=== PATIENT | female | born 1950 | race Caucasian/White ===

== ENCOUNTER → 2017-04-10 | Outpatient (CLI) | payer MEDICARE, OTHER ==
[~2017-04-10] MED LIST: Pepcid20 MG PO; Prednisone20 MG PO; Zofran Odt4 MG SL
== END | disposition home or self-care (01) ==
LOC: LAB 19:22
PROVIDERS: Internal Medicine
DX: Z01.419 Encounter for gynecological examination (general) (routine) without abnormal findings (principal)
CPT/HCPCS: G0145

== ENCOUNTER → 2017-10-08 | Outpatient (CLI) | payer MEDICARE, OTHER | END | disposition home or self-care (01) | LOC: LAB EV 09:52 → LAB SHORT 09:52 | DX: N39.0 Urinary tract infection, site not specified (principal) | CPT/HCPCS: 87077; 87086; 87186 ==

== ENCOUNTER → 2018-03-26 | Outpatient (CLI) | payer MEDICARE, OTHER | END | disposition home or self-care (01) | LOC: LAB EV 09:35 → LAB SHORT 09:35 | DX: N39.0 Urinary tract infection, site not specified (principal) | CPT/HCPCS: 87086 ==

== ENCOUNTER 2018-06-19 06:04 | Inpatient (IN) | payer MEDICARE, OTHER ==
[~2018-06-19] VITALS: Ht 175.3 cm; Wt 67.6 kg
[~2018-06-19 06:04] MED LIST changes: +ASCO500 PO; +CHOL10002 PO; +Glucosamine Ch1 EAC4 PO; +THERA1 EACH PO
--- NOTE | 2018-06-19 10:15 | NUR ---
BLADDER SCANED 165 ML NO URGE TO VOID
--- NOTE | 2018-06-19 17:41 | NUR ---
SHIFT SUMMARY PT A&OX4, VSS. S/P R WENDY, SURGICAL DRESSING CDI. PAIN MANAGED WITH 5 MG OXY, TYLENOL AND TORADOL. BO PO, DENIES N&V. AMB W/FWW & GB TO [facility], SITTING IN CHAIR. VOIDING WELL. PT EVAL'D, PLAN FOR SECOND PT IN AM FOR STAIRS AND CAR, THEN DC. WILL CTM & TX PER EMAR UNTIL REPORT GIVEN TO ONCOMING NOC RN.
--- NOTE | 2018-06-20 03:55 | NUR ---
SUMMARY: PT IS POD1 R WENDY. DOING WELL POST OP. MOVES EASILY WITH SBA, FWW. SURGICAL SITE CDI. APPLIED ICE TONIGHT AND GAVE TYLENOL AND TORADOL. PT DENIED NEED FOR ANY NARCOTICS. RATED PAIN 1/10 EVEN AFTER GETTING UP TO VOID. VSS, NO ACUTE CONCERNS AT THIS TIME.
[2018-06-20 04:47] LABS: BASOPHILS ABSOLUTE AUTO 0.03 K/mm3 (0.00-0.23); BASOPHILS PERCENT AUTO 0 % (0-2); EOSINOPHILS ABSOLUTE AUTO 0.01 K/mm3 (0.00-0.68); EOSINOPHILS PERCENT AUTO 0 % (0-6); Hematocrit 35.1 % (33.0-51.0); Hemoglobin 11.9 g/dL (11.5-16.0); IMMATURE GRAN ABSOLUTE AUTO 0.06 K/mm3 (0.00-0.10); IMMATURE GRAN PERCENT AUTO 0 % (0-1); LYMPHOCYTES PERCENT AUTO 9 % (21-46); MONOCYTES ABSOLUTE AUTO 1.07 K/mm3 (0.16-1.47); MONOCYTES PERCENT AUTO 8 % (4-13); Mean Corpuscular HGB 32.3 pg (26.0-34.0); Mean Corpuscular HGB Conc 33.9 g/dL (31.5-36.5); Mean Corpuscular Volume 95 fL (80-100); Mean Platelet Volume 9.9 fL (9.1-12.4); NEUTROPHILS ABSOLUTE AUTO 11.68 K/mm3 (1.96-9.15); NEUTROPHILS PERCENT AUTO 83 % (41-73); Platelet Count 241 K/mm3 (150-400); RDW Coefficient Variation 12.5 % (11.7-14.2); RDW Standard Deviation 43.7 fL (35.1-46.3); Red Blood Cell Count 3.68 M/mm3 (3.80-5.20); White Blood Cell Count 14.05 K/mm3 (4.00-11.30)
[2018-06-20 05:06] LABS: Anion Gap 7 mmol/L (6-16); Blood Urea Nitrogen 12 mg/dL (8-24); Bun/Creatinine Ratio 17.9 (12.0-20.0); CO2, Blood 27 mmol/L (21-32); Calcium, Blood 8.6 mg/dL (8.5-10.1); Chloride, Blood 102 mmol/L (98-108); Creatinine, Blood 0.67 mg/dL (0.40-1.00); Glomerular Filtration Rate >60 (60-); Glucose, Blood 145 mg/dL (70-99); Potassium, Blood 4.1 mmol/L (3.5-5.5); Sodium, Blood 136 mmol/L (136-145)
[2018-06-20] MEDS ORDERED: ASPI325EC PO (08:35)
[2018-06-20] MEDS ORDERED: OXYC5 PO (08:37)
--- NOTE | 2018-06-20 10:10 | NUR ---
DISCHARGE SUMMARY PT A&OX4, VSS, LEFT FLOOR VIA WC WITH ENGINE MONITOR TO GO HOME WITH , WITH ALL PERSONAL POSSESSIONS INCLUDING DISCHARGE PACKET; PT REP ALREADY HAVING NARC SCRIPT FILLED PRIOR TO SURG. DISCHARGE INSTRUCTIONS PROVIDED. PT REP UNDERSTANDING THOSE INSTRUCTIONS INCLUDING FU APPT WITH SG, PAIN MANAGEMENT, PT APPTS, SHORT FREQ AMB W/FWW, ELEVATE & ICE AT REST. IV DC'D.
== END 2018-06-20 10:20 | disposition home or self-care (01) | DRG 470 ==
LOC: ORSCMMR 06:04 → SURS 07:22 → ORD 07:30 → ORSCMMR 07:30 → SURS 10:18
PROVIDERS: ADMIT Orthopaedic Surgery
PROC: 0SR9039 Replacement of Right Hip Joint with Ceramic Synthetic Substitute, Cemented, Open Approach (ICD-10-PCS; principal; 2018-06-19 07:30)
DX: M16.11 Unilateral primary osteoarthritis, right hip (principal)
CPT/HCPCS: 36415; 72170; 80048; 83735; 85025; 88300; 97110; 97116; 97161; 97530; C1713; C1776; J0171; J0690; J0735; J1100; J1885; J2250; J2370; J2405; J2704; J2710; J2795; J3010; J7120

== ENCOUNTER 2020-04-28 06:18 | Day surgery (SDC) | payer MEDICARE, OTHER ==
[~2020-04-28] VITALS: Ht 172.7 cm; Wt 69.2 kg
[~2020-04-28 06:18] MED LIST changes: +ASPI325EC PO; -Glucosamine Ch1 EAC4 PO; +Glucosamine Chondroi PO; +OXYC5 PO
--- NOTE | 2020-04-28 07:13 | NUR ---
Ambulatory in Day Surgery Surgical site prepped with 2% Chlorhexidine cloth wipe. Dari Paws warming gown applied. History, Chart, Medications and Allergies reviewed before start of procedure.Lungs clear T/O to Auscultation. Patient confirms NPO status and agrees with scheduled surgery. Pre-Op teaching done. Pt verbalizes understanding. Patient States Post-Procedure ride home has been arranged. Patient reports completing Chlorhexadine shower X2 prior to admission to hospital.
--- NOTE | 2020-04-28 10:14 | NUR ---
RECIEVED REPORT FROM PACU NURSE SOLO AT 1010. PT TO RM 219.
--- NOTE | 2020-04-28 11:19 | NUR ---
PT ARRIVED IN ROOM 219 AT 1015. PODO S/P L WENDY. PT AOX4. VSS. PT ON ROOM AIR SATURATING MORE THAN 95%. PT DENIES PAIN. PT L HIP WITH 3 FOAM GAUZE, WITH CDI. SHE HAD SPINAL ANESTHESIA, REPORTS SENSATION. ABLE TO WIGGLE TOES. CAP REFILL WNL. PEDAL PULSES ARE STRONG. R FOREARM INFUSING. TXA ADMINSTERED AT 1100. PT TOLERATING CLEAR DIET, DENIES N/V. SCD IN PLACED AND ANTIEMBOLIC SOCKS. CRYOTHERAPY IS ALSO IN PLACED ON L HIP. PT REQUESTED TO CALL FOR AN UPDATE. I CALLED AND SPOKE WITH FOR AN UPDATE. HE WILL COME IN LATER TODAY, HE PLANS TO WORK WITH AND THERAPIST LATER TODAY. CALL LIGHT WITHIN REACH.
--- NOTE | 2020-04-28 19:16 | NUR ---
SHIFT SUMMARY PT AOX4. POD0 L WENDY. NO ACUTE CHANGES. PT REPORTS MINIMAL PAIN. PAIN MANAGED WITH TORADOL, TYLENOL AND COLLEEN 5MG. PT TOLERATING RED DIET. DENIES N/V. PT HAS CHRONIC NEUROPATHY DENIES SIGNIFICANT N/T. ADMINISTERD ABX. SALINE LOCKED. PT WORKED WITH PT AND OT TODAY, TOLERATED IT WELL. WAS PRESENT AT THE BEDSIDE THIS AFTERNOON DURING THE THERAPY SESSION. SHE WILL HAVE A SCHEDULED SESSION AGAIN ASHLI MORNING WITH AT 9AM. CALL LIGHT WITHIN REACH. PAS ON BILATERAL CALF IN PLACED. VSS.
[2020-04-29 05:56] LABS: BASOPHILS ABSOLUTE AUTO 0.06 K/mm3 (0.00-0.23); BASOPHILS PERCENT AUTO 0 % (0-2); EOSINOPHILS ABSOLUTE AUTO 0.06 K/mm3 (0.00-0.68); EOSINOPHILS PERCENT AUTO 0 % (0-6); Hematocrit 38.4 % (33.0-51.0); IMMATURE GRAN ABSOLUTE AUTO 0.06 K/mm3 (0.00-0.10); IMMATURE GRAN PERCENT AUTO 0 % (0-1); LYMPHOCYTES PERCENT AUTO 11 % (21-46); MONOCYTES PERCENT AUTO 8 % (4-13); Mean Corpuscular HGB 31.9 pg (26.0-34.0); Mean Corpuscular HGB Conc 33.9 g/dL (31.5-36.5); Mean Corpuscular Volume 94 fL (80-100); Mean Platelet Volume 10.4 fL (9.1-12.4); NEUTROPHILS PERCENT AUTO 80 % (41-73); Platelet Count 277 K/mm3 (150-400); RDW Coefficient Variation 12.6 % (11.7-14.2); RDW Standard Deviation 43.8 fL (35.1-46.3); Red Blood Cell Count 4.07 M/mm3 (3.80-5.20); White Blood Cell Count 14.78 K/mm3 (4.00-11.30)
[2020-04-29 06:28] LABS: Anion Gap 5 mmol/L (6-16); Blood Urea Nitrogen 20 mg/dL (8-24); Bun/Creatinine Ratio 27.1 (12.0-20.0); CO2, Blood 28 mmol/L (21-32); Calcium, Blood 9.3 mg/dL (8.5-10.1); Chloride, Blood 106 mmol/L (98-108); Creatinine, Blood 0.74 mg/dL (0.40-1.00); Glomerular Filtration Rate >60 (60-); Glucose, Blood 93 mg/dL (70-99); Magnesium, Blood 2.1 mg/dL (1.6-2.4); Potassium, Blood 4.1 mmol/L (3.5-5.5); Sodium, Blood 139 mmol/L (136-145)
--- NOTE | 2020-04-29 06:31 | NUR ---
SHIFT SUMMARY LYING IN SEMI FOWLERS WITH EYES CLOSED, HAS RESTED WELL THROUGHOUT SHIFT. POD #1, AAO X4, FAITH, FOLLOWS DIRECTIONS. RESPIRATIONS EVEN AND UNLABORED ON ROOM AIR. LUNG SOUNDS CLEAR BILATERALLY. ABDOMEN SOFT AND NONDISTENDED. BOWEL SOUNDS NOTED IN ALL QUADS. LEFT HIP WITH FOAM COVERED GUAZE DRESSINGS THAT ARE C/D/I. SCD'S NOTED TO BLE. DENIES PAIN, DISCOMFORT, OR FURTHER NEEDS AT THIS TIME. SAFETY MEASURES IN PLACE. WILL CONTINUE TO MONITOR AND GIVE HAND OFF TO ONCOMING SHIFT USING SBAR DURING BEDSIDE REPORT.
[2020-04-29] MEDS ORDERED: ASPI81CH PO (10:24)
[2020-04-29] MEDS ORDERED: OXAYDO5 M1 PO (10:25)
[2020-04-29] MEDS ORDERED: PROM25 PO (10:26)
--- NOTE | 2020-04-29 11:11 | NUR ---
discharged DC'D IV, CATHETER INTACT. REVIEWED DC INSTRUCTIONS W/PT; VERBALIZED UNDERSTANDING. PROVIDED AQUACEL DRESSING CHANGES. PT LEFT UNIT IN WC W/POSSESSIONS, POLAR PACK, AQUACEL, AND DC INSTRUCTIONS IN HAND, ACCOMPANIED BY SPOUSE.
[2020-07-06] MEDS ORDERED: Percocet 5-3251 EACH PO (15:24)
[2020-07-06] MEDS ORDERED: MULVITA PO (15:33)
[2020-07-06] MEDS ORDERED: ASCO500 PO (15:33)
[2020-07-06] MEDS ORDERED: GLUCHON PO (15:34)
[2020-07-06] MEDS ORDERED: VITAMIN D310 MC4 PO (15:34)
== END 2020-04-29 10:54 | disposition home or self-care (01) ==
LOC: ORD 06:18 → ORSCMMR 06:18 → ORD 07:30 → SURS 10:14 → ORSCMMR 04-29 10:54 → SURS 04-29 10:54 → ORD 04-29 10:54
PROVIDERS: Orthopaedic Surgery
PROC: 0SRB0JA Replacement of Left Hip Joint with Synthetic Substitute, Uncemented, Open Approach (ICD-10-PCS; principal; 2020-04-28 07:30)
PROC: 8E0YXBZ Computer Assisted Procedure of Lower Extremity (ICD-10-PCS; principal; 2020-04-28 07:30)
DX: M16.12 Unilateral primary osteoarthritis, left hip (principal)
CPT/HCPCS: 36415; 72170; 80048; 83735; 85025; 88300; 97110; 97116; 97161; 97165; 97530; 97535; A9270; C1713; C1776; J0171; J0690; J0735; J1100; J1885; J2250; J2405; J2704; J2795; J3010; J3370; J7120

== ENCOUNTER 2020-04-29 22:47 | Observation (INO) | payer MEDICARE, OTHER ==
[~2020-04-29] VITALS: Ht 172.7 cm; Wt 65.8 kg
[~2020-04-29 22:47] MED LIST changes: +ASPI81CH PO; +OXAYDO5 M1 PO; +PROM25 PO
[2020-04-29 23:22] LABS: BASOPHILS ABSOLUTE AUTO 0.09 K/mm3 (0.00-0.23); BASOPHILS PERCENT AUTO 1 % (0-2); EOSINOPHILS PERCENT AUTO 1 % (0-6); Hematocrit 39.1 % (33.0-51.0); Hemoglobin 13.1 g/dL (11.5-16.0); IMMATURE GRAN ABSOLUTE AUTO 0.07 K/mm3 (0.00-0.10); IMMATURE GRAN PERCENT AUTO 1 % (0-1); LYMPHOCYTES ABSOLUTE AUTO 1.51 K/mm3 (0.84-5.20); LYMPHOCYTES PERCENT AUTO 10 % (21-46); MONOCYTES ABSOLUTE AUTO 1.33 K/mm3 (0.16-1.47); MONOCYTES PERCENT AUTO 9 % (4-13); Mean Corpuscular HGB 31.7 pg (26.0-34.0); Mean Corpuscular HGB Conc 33.5 g/dL (31.5-36.5); Mean Corpuscular Volume 95 fL (80-100); Mean Platelet Volume 10.2 fL (9.1-12.4); NEUTROPHILS ABSOLUTE AUTO 12.12 K/mm3 (1.96-9.15); NEUTROPHILS PERCENT AUTO 80 % (41-73); Platelet Count 271 K/mm3 (150-400); RDW Coefficient Variation 12.9 % (11.7-14.2); Red Blood Cell Count 4.13 M/mm3 (3.80-5.20); White Blood Cell Count 15.22 K/mm3 (4.00-11.30)
[2020-04-29 23:42] LABS: Alanine Aminotransfer (ALT/SGP 24 U/L (12-78); Albumin, Blood 3.3 g/dL (3.4-5.0); Albumin/Globulin Ratio 1.1 (0.8-1.8); Alk Phos 83 U/L (50-136); Anion Gap 8 mmol/L (6-16); Aspartate Aminotrans (AST/SGOT 32 U/L (12-37); Bilirubin, Total 0.5 mg/dL (0.1-1.0); Blood Urea Nitrogen 21 mg/dL (8-24); Bun/Creatinine Ratio 28.5 (12.0-20.0); CO2, Blood 25 mmol/L (21-32); Calcium, Blood 8.9 mg/dL (8.5-10.1); Chloride, Blood 108 mmol/L (98-108); Creatinine, Blood 0.74 mg/dL (0.40-1.00); Globulin, Blood 3.1 g/dL (2.2-4.0); Glomerular Filtration Rate >60 (60-); Glucose, Blood 112 mg/dL (70-99); Potassium, Blood 3.7 mmol/L (3.5-5.5); Sodium, Blood 141 mmol/L (136-145); Total Protein, Blood 6.4 g/dL (6.4-8.2); Troponin I <0.015 ng/mL (0.000-0.040)
[2020-04-30 01:13] LABS: International Normalized Ratio 0.97; Prothrombin Time Results 10.4 Sec (9.7-11.5)
--- NOTE | 2020-04-30 04:00 | NUR ---
PATIENT IS A NEW ADMIT FROM THE ED. FOUR PERSON TRANSFER WITH LEFT LEG/KNEE IMMOBILIZER IN PLACE, FROM [facility] TO BED. ALERT AND ORIENTED. TELEMETRY PLACED AND TECH REPORTS NSR 83. SUCCESSFULLY USING BED ENRIQUEZ AT THIS TIME. BEDREST. REPORTS MINIMAL LEFT HIP PAIN 04/14. DENIES N/V AND SOB. ON RROM AIR. NORMAL SALINE STARTED AND INFUSING AT 75 mL/HR X ONE BAG. PATIENT ORIENTED TO ROOM AND CALL LIGHT SYSTEM. REPORTS SHE IS READY TO SLEEP AT THIS TIME. CALL LIGHT IN REACH.
[2020-04-30 07:18] LABS: BASOPHILS ABSOLUTE AUTO 0.05 K/mm3 (0.00-0.23); BASOPHILS PERCENT AUTO 0 % (0-2); EOSINOPHILS ABSOLUTE AUTO 0.01 K/mm3 (0.00-0.68); EOSINOPHILS PERCENT AUTO 0 % (0-6); Hematocrit 34.9 % (33.0-51.0); Hemoglobin 12.1 g/dL (11.5-16.0); IMMATURE GRAN ABSOLUTE AUTO 0.04 K/mm3 (0.00-0.10); IMMATURE GRAN PERCENT AUTO 0 % (0-1); LYMPHOCYTES ABSOLUTE AUTO 0.94 K/mm3 (0.84-5.20); LYMPHOCYTES PERCENT AUTO 8 % (21-46); MONOCYTES PERCENT AUTO 9 % (4-13); Mean Corpuscular HGB 32.2 pg (26.0-34.0); Mean Corpuscular HGB Conc 34.7 g/dL (31.5-36.5); Mean Corpuscular Volume 93 fL (80-100); Mean Platelet Volume 9.9 fL (9.1-12.4); NEUTROPHILS ABSOLUTE AUTO 9.33 K/mm3 (1.96-9.15); NEUTROPHILS PERCENT AUTO 82 % (41-73); Platelet Count 241 K/mm3 (150-400); RDW Coefficient Variation 12.9 % (11.7-14.2); RDW Standard Deviation 43.8 fL (35.1-46.3); Red Blood Cell Count 3.76 M/mm3 (3.80-5.20); White Blood Cell Count 11.37 K/mm3 (4.00-11.30)
[2020-04-30 07:38] LABS: Alanine Aminotransfer (ALT/SGP 23 U/L (12-78); Albumin, Blood 2.8 g/dL (3.4-5.0); Albumin/Globulin Ratio 0.9 (0.8-1.8); Alk Phos 75 U/L (50-136); Anion Gap 5 mmol/L (6-16); Aspartate Aminotrans (AST/SGOT 35 U/L (12-37); Bilirubin, Total 0.7 mg/dL (0.1-1.0); Blood Urea Nitrogen 11 mg/dL (8-24); Bun/Creatinine Ratio 19.6 (12.0-20.0); CO2, Blood 26 mmol/L (21-32); Calcium, Blood 8.6 mg/dL (8.5-10.1); Chloride, Blood 113 mmol/L (98-108); Creatinine, Blood 0.56 mg/dL (0.40-1.00); Glomerular Filtration Rate >60 (60-); Glucose, Blood 98 mg/dL (70-99); Potassium, Blood 3.9 mmol/L (3.5-5.5); Sodium, Blood 144 mmol/L (136-145); Total Protein, Blood 5.8 g/dL (6.4-8.2)
[2020-04-30 08:00] LABS: Creatine Kinase MB Index 0.8 (0.0-4.0)
--- NOTE | 2020-04-30 14:43 | NUR ---
CARE COORDINATION REFERRAL - ADMIT: 04/29/20 DISCHARGE: DX: HIP DISLOCATION CC: ZOE CALL: RESIDENCE: HOME CAREGIVER: ABBY GASTELUM, SPOUSE / PARTNER, [phone] DONNY VEGA, FAMILY MEMBER, [phone] DX: DISORDER OF BONE, OSTEOARTHRITIS, SEE LIST DME: ARM SPLINT CCM: NONE HOME HEALTH: NONE
--- NOTE | 2020-04-30 15:31 | NUR ---
SHIFT SUMMARY PT AWAKE DURING SHIFT REPORT. PLEASANT AND CO-OP. DENIED PAIN, DENIED FURTHER NEEDS AT THAT TIME. PT SITTING UP IN BED FOR BREAKFAST, THEN NEEDING TO USE BED ENRIQUEZ TO VOID. PT ADMITTED FOR L HIP DISLOCATION EARLY THIS AM AFTER FALL AT HOME WITH 1DAY OLD HIP REPLACEMENT. PT REQUESTING CONSULT WITH DR MOLINA, WHO DID HIP SX DAY BEFORE. NOTIFIED DR SEE FOR ORDERS. DR MOLINA NOTIFIED OF CONSULT AND FOR PT/OT INSTRUCTIONS. DR MOLINA LATER IN TO ASSESS PT AND HIP, CHANGING DRSG AND CLEANING SX SITE BEFORE PLACING NEW DRSG. SITE HEALING WNL'S. PT WITH KNEE IMMOBILIZER IN PLACE WELL. PT UP TO BTHRM WITH P/T USING FWW AND SITTING IN CHAIR AT BS FOR LUNCH. PT LATER BACK TO BED FOR A SHORT NAP BEFORE GETTING BACK UP TO CHAIR. DR MOLINA CLEARED PT FOR D/C PER ORTHO, DISCUSSING D/C INSTRUCTIONS PER ORTHO WHEN GOING HOME. DR SEE NOTIFIED, AND LATER IN TO SEE PT. D/C ORDERS PLACED. D/C INSTRUCTIONS DISCUSSED AGAIN WITH PT; VERBALIZED UNDERSTANDING. PT'S ASSISTED PT WITH GETTING DRESSED. PT ABLE TO TX TO W/C AND ASSISTED OUT TO HUSBANDS TRUCK. PT CONTINUED TO DENY PAIN AND DENIED NEEDING ANYTHING FOR PAIN. PT REPORTED HIGHEST PAIN LEVEL TODAY AT 1/10.
--- NOTE | 2020-05-04 19:48 | NUR ---
ADMIT: 04/29/20 DISCHARGE:04/30/20 DX: hip dislocation CC: ZOE CALL: call her at home RESIDENCE: home CAREGIVER: Scotty Ascencio, Spouse / Partner, [phone] Imani Zamora, Family Member, [phone] DX: Disorder of bone, osteoarthritis, see list DME: arm splint CCM: none HOME HEALTH: none SUMMARY:Admit 04/28/20 Discharge 04/30/[address] Pierce: DISCHARGE MEDICATIONS: 1. Aspirin 81 mg p.o. q.a.m. 2. Multivitamin one p.o. daily. 3. Oxycodone 5 mg p.o. q.8 hours p.r.n. 4. Phenergan 12.5 mg p.o. q.8 hours p.r.n. 5. Vitamin D 2000 International Units p.o. daily. FOLLOWUP: The patient is to follow up with Dr. Tuttle as previously scheduled in two weeks' time. She is to follow up with her primary care physician, Dr. Flores as previously scheduled. There are no pending studies .Patient presents to the emergency department for evaluation of a syncopal episode with left-sided hip pain, 1 day after being discharged from this facility after left hip replacement.
[2020-07-06] MEDS ORDERED: Percocet 5-3251 EACH PO (15:24)
[2020-07-06] MEDS ORDERED: ASCO500 PO (15:33)
[2020-07-06] MEDS ORDERED: MULVITA PO (15:33)
[2020-07-06] MEDS ORDERED: GLUCHON PO (15:34)
[2020-07-06] MEDS ORDERED: VITAMIN D310 MC4 PO (15:34)
== END 2020-04-30 14:56 | disposition home or self-care (01) ==
LOC: ER 22:47 → MEDS 22:48
PROVIDERS: Emergency Medicine; ADMIT Internal Medicine
DX: R55 Syncope and collapse (principal); Z79.82 Long term (current) use of aspirin; Z79.891 Long term (current) use of opiate analgesic; Z96.642 Presence of left artificial hip joint
CPT/HCPCS: 27250; 36415; 72170; 73501; 73502; 73560-LT; 80048; 80053; 82550; 82553; 83605; 83735; 84484; 85025; 85610; 88300; 93005; 93010; 96372; 97110; 97116; 97161; 97165; 97530; 97535; 99285-25; A9270; C1713; C1776; G0378; J0171; J0690; J0735; J1100; J1650; J1885; J2250; J2405; J2704; J2795; J3010; J3370; J7030; J7120

== ENCOUNTER 2020-06-23 19:17 | Emergency (ER) | payer MEDICARE ==
[~2020-06-23] VITALS: Ht 172.7 cm; Wt 65.8 kg
== END 2020-06-24 03:23 | disposition home or self-care (01) ==
LOC: ER 19:17
DX: T84.021A Dislocation of internal left hip prosthesis, initial encounter (principal); Z79.899 Other long term (current) drug therapy; Z91.030 Bee allergy status
CPT/HCPCS: 27250; 73501; 73502; 99152; 99284-25; J2704; J7030

== ENCOUNTER 2020-07-21 06:07 | Day surgery (SDC) | payer MEDICARE, OTHER ==
[~2020-07-21] VITALS: Ht 172.7 cm; Wt 66.2 kg
[~2020-07-21 06:07] MED LIST changes: +GLUCHON PO; +MULVITA PO; +Percocet 5-3251 EACH PO; +VITAMIN D310 MC4 PO
--- NOTE | 2020-07-21 06:40 | NUR ---
Ambulatory in Day Surgery. History, Chart, Medications and Allergies reviewed before start of procedure. Patient confirms NPO status and agrees with scheduled surgery. Lungs clear T/O to Auscultation.
--- NOTE | 2020-07-21 17:24 | NUR ---
SHIFT SUMMARY PT HAS BEEN IN PLEASENT MOOD THROUGHOUT SHIFT. PT IS RELAXING IN CHAIR WITH SCD IN PLACE. PT HAS BEEN UTILIZING CALL LIGHT FOR BATHROOM NEEDS. PT IS TOLLERATING ORAL INTAKE. CALL LIGHT IS WITHIN REACH. PT VSS.
--- NOTE | 2020-07-21 20:54 | NUR ---
VANCO REACTION PT APPEARS TO BE HAVING A LOCALIZED IV SITE REACTION AFTER RECEIVING HER ONE TIME DOSE OF VANCOMYACIN, SMALL RED AREA AROUND IV SITE AND PT IS REPORTING HER DISTAL ARM FEELS ITCHY. DISCUSSED MEDICATION REACTIONS WITH THE PATIENT AND PROVIDED A DOSE OF BENADRYL (SEE EMAR). WILL CONTINUE TO MONITOR AND UPDATE ANY CHANGES.
--- NOTE | 2020-07-22 03:24 | NUR ---
SHIFT SUMMARY POD1 L WENDY, A/O X4, VSS, BP ON THE LOW SIDE BUT MAP HAS BEEN WNL AND PATIENT HAS REMAINED ASYMPTOMATIC, MILD REACTION TO SINGLE VANCOMYACIN IV ABX (SEE NURSE NOTES),REDNESS STILL PRESENT AT IV SIGTE BUT IT IS IMPROVING, PAIN WELL MANAGED PER EMAR, NO ACUTE EVENTS THIS SHIFT. CALL LIGHT IN REACH, WILL CONTINUE TO MONITOR AND REPORT TO ONCOMING DAY RN.
[2020-07-22 04:49] LABS: BASOPHILS ABSOLUTE AUTO 0.06 K/mm3 (0.00-0.23); BASOPHILS PERCENT AUTO 1 % (0-2); EOSINOPHILS ABSOLUTE AUTO 0.04 K/mm3 (0.00-0.68); EOSINOPHILS PERCENT AUTO 0 % (0-6); Hematocrit 37.4 % (33.0-51.0); Hemoglobin 12.6 g/dL (11.5-16.0); IMMATURE GRAN ABSOLUTE AUTO 0.04 K/mm3 (0.00-0.10); IMMATURE GRAN PERCENT AUTO 0 % (0-1); LYMPHOCYTES ABSOLUTE AUTO 1.75 K/mm3 (0.84-5.20); LYMPHOCYTES PERCENT AUTO 13 % (21-46); MONOCYTES ABSOLUTE AUTO 1.05 K/mm3 (0.16-1.47); MONOCYTES PERCENT AUTO 8 % (4-13); Mean Corpuscular HGB 31.7 pg (26.0-34.0); Mean Corpuscular HGB Conc 33.7 g/dL (31.5-36.5); Mean Corpuscular Volume 94 fL (80-100); Mean Platelet Volume 9.9 fL (9.1-12.4); NEUTROPHILS ABSOLUTE AUTO 10.13 K/mm3 (1.96-9.15); NEUTROPHILS PERCENT AUTO 78 % (41-73); Platelet Count 269 K/mm3 (150-400); RDW Coefficient Variation 12.4 % (11.7-14.2); RDW Standard Deviation 43.3 fL (35.1-46.3); Red Blood Cell Count 3.98 M/mm3 (3.80-5.20); White Blood Cell Count 13.07 K/mm3 (4.00-11.30)
[2020-07-22 05:06] LABS: Anion Gap 3 mmol/L (6-16); Blood Urea Nitrogen 14 mg/dL (8-24); Bun/Creatinine Ratio 20.9 (12.0-20.0); CO2, Blood 28 mmol/L (21-32); Calcium, Blood 8.5 mg/dL (8.5-10.1); Chloride, Blood 109 mmol/L (98-108); Creatinine, Blood 0.67 mg/dL (0.40-1.00); Glomerular Filtration Rate >60 (60-); Glucose, Blood 115 mg/dL (70-99); Potassium, Blood 4.1 mmol/L (3.5-5.5); Sodium, Blood 140 mmol/L (136-145)
--- NOTE | 2020-07-22 16:37 | NUR ---
07/22/20 1637 Krystal Nesbitt VERIFICATIONS: EDIT CHART.
--- NOTE | 2020-07-22 17:26 | NUR ---
SHIFT SUMMARY PT HAS BEEN IN PLEASENT MOOD THROUGHOUT SHIFT. PT'S SPOUSE WAS AT BEDSIDE DURING VISITING HOURS. BERTHA ROSAS AMBULATED PT THROUGH HALLS PER PT REQUEST. PT CURRENTLY RESTING IN CHAIR WITH CRYOTHERAPY APPLIED TO SURGICAL SITE. PT TOLERATING ORAL INTAKE WELL. VSS. DRESSING C/D/I. CALL LIGHT WITHIN REACH.
--- NOTE | 2020-07-22 17:44 | NUR ---
SHIFT SUMMARY PT IS POD#1 FROM L HIP REVISION WITH DR. MOLINA. PT CLEARED THERAPY TODAY, HOWEVER DR. MOLINA WANTS HER TO REMAIN IN THE HOSPITAL AN ADDITIONAL NIGHT R/T ORTHOSTATIC HYPOTENSION AFTER PREVIOUS HIP SURGERY. PLAN FOR PT TO DC HOME TOMORROW MORNING IF BP REMAINS STABLE. PT HAS BEEN PLEASANT AND COOPERATIVE T/O THE SHIFT. HER WAS AT THE BEDSIDE FOR SUPPORT. PT TOLERATING PO AND ABLE TO VOID. WILL MONITOR UNTIL REPORT TO NOC RN.
--- NOTE | 2020-07-23 03:50 | NUR ---
SHIFT SUMMARY POD2 L HIP REVISION. VSS. PT DENIES DIZZINESS AND DENIES S/SX OF HYPOTHENSION. VSS. BP REMAIN WNL. 131/63MMHG AT MIDNIGHT. NO ACUTE CHANGES OVERNIGHT. PT STEADY USING FWW AND GB WITH 1 MIN ASSIST TO BATHROOM. VOIDING ADEQUATELY DENIES DIFFICULTY/ISSUES. TOLERATING PO, DENIES NAUSEA AND VOMITING. PASSING FLATUS. AOX4. L HIP WITH AQUACEL DRESSING, CDI. DENIES N/T. NO IV AT THIS TIME AND REFUSE TO HAVE ONE. PAIN IS TOLERABLE, PAIN LEVEL 1-2/10. PAIN MANAGED WITH TYLENOL. CALL LIGHT WITHIN REACH. WILL PROVIDE REPORT TO ONCOMING DAY NURSE.
[2020-07-23] MEDS ORDERED: ASPI81CH PO (10:35)
[2020-07-23] MEDS ORDERED: SULTRIDS PO (10:36)
[2020-07-23] MEDS ORDERED: PROM12.5S PO (10:36)
--- NOTE | 2020-07-23 11:20 | NUR ---
DISCHARGE SUMMARY PT ALERT AND ORIENTED THROUGHOUT SHIFT. TOLERATING REGULAR DIET AND FLUIDS. VOIDING WELL. CLEARED BY PHYSICAL THERAPY. AQUACEL CHANGED BY ORTHO THIS AM. PAIN CONTROLLED WITH PO PAIN MEDS. DISCHARGE ORDER OBTAINED. DISCHARGE EDUCATION GIVEN ON WOUND CARE, ACTIVITY, NEW RX'S, AND FOLLOW UP APPOINTMENTS. PATIENT LEFT UNIT FOR HOME VIA WHEELCHAIR AT 1115.
== END 2020-07-23 11:20 | disposition home or self-care (01) ==
LOC: ORSCMMR 06:07 → SURS 10:46 → ORD 11:15 → ORSCMMR 11:15 → SURS 07-23 11:20
PROVIDERS: Orthopaedic Surgery
PROC: 0SPB0JZ Removal of Synthetic Substitute from Left Hip Joint, Open Approach (ICD-10-PCS; principal; 2020-07-21 07:30)
PROC: 0SRB0JA Replacement of Left Hip Joint with Synthetic Substitute, Uncemented, Open Approach (ICD-10-PCS; principal; 2020-07-21 07:30)
DX: Z96.642 Presence of left artificial hip joint (principal); Z79.82 Long term (current) use of aspirin; Z79.899 Other long term (current) drug therapy
CPT/HCPCS: 36415; 72170; 80048; 83735; 85025; 97110; 97116; 97116-CQ; 97162; 97166; 97530; 97530-CQ; 97535; A9270; C1713; C1776; J0171; J0690; J0735; J1100; J1885; J2370; J2405; J2704; J2795; J3010; J3370; J7120

== ENCOUNTER → 2023-01-08 | Outpatient (CLI) | payer MEDICARE, OTHER ==
[~2023-01-08] MED LIST changes: +PROM12.5S PO; +SULTRIDS PO
== END ==
LOC: PLD 11:53 → LAB SHORT 11:53
DX: D48.5 Neoplasm of uncertain behavior of skin (principal)
CPT/HCPCS: 88305

== ENCOUNTER → 2024-05-20 | Outpatient (CLI) | payer MEDICARE, OTHER | END | disposition home or self-care (01) | LOC: LAB 11:32 → LAB SHORT 11:32 | DX: N39.0 Urinary tract infection, site not specified (principal) | CPT/HCPCS: 87086 ==